=== PATIENT | female | born 1965 | race Caucasian/White ===

== ENCOUNTER 2021-08-21 11:58 | Emergency (ER) | payer BC ==
[2021-08-21 12:06] VITALS: TEMP 98
[2021-08-21] MEDS ORDERED: HYDROmorphone 1 MG/ML 1 ML SYRINGE IM STA (12:36)
--- NOTE | 2021-08-21 12:36 | XR ---
Left wrist HISTORY: Trauma and pain There is a comminuted, displaced, dorsally angulated intra-articular distal left radial fracture. Wid ening of the radioulnar joint is also present. impression: Left wrist fracture.
--- NOTE | 2021-08-21 12:59 | ED ---
Upper Extremity HPI - General Chief Complaint: Extremity Injury, Upper Stated Complaint: Broken wrist Time Seen by Provider: 08/21/21 12:26 Source: patient Mode of arrival: ambulatory Limitations: no limitations - History of Present Illness Initial Comments: 55-year-old female who fell backwards while trying to pull a branch of a yard late on her outstretched left hand. She complains of pain to the distal radius area. No other injuries no head neck or back pain she states she has no sensory or motor deficits this pain to the distal wrist. She did not take any medications at home. She rates her pain at 7/10 in severity. No other injuries reported other complaints or modifying factors at this time. She is right-hand dominant MD Complaint: Injury to:: left, wrist - Related Data Previous Rx's Medication Instructions Recorded HYDROcodone/APAP 7.5-325MG [[place] 1 tab PO Q4H PRN 3 Days #18 tab 08/21/21 7.5-325] Allergies Allergy/AdvReac Type Severity Reaction Status Date / Time No Known Allergies Allergy Verified 08/21/21 12:06 Review of Systems ROS Statement: Those systems with pertinent positive or pertinent negative responses have been documented in the HPI. ROS Other: All systems not noted in ROS Statement are negative. Past Medical History Past Medical History: No Reported History History of Any Multi-Drug Resistant Organisms: None Reported Past Surgical History: No Surgical Hx Reported Past Psychological History: No Psychological Hx Reported Smoking Status: Never smoker Past Alcohol Use History: None Reported Past Drug Use History: None Reported General Exam - General Exam Comments Initial Comments: This is a well-developed well-nourished awake alert oriented 3 female [place] Coma Scale 15 Limitations: no limitations General appearance: alert, anxious Head exam: Present: atraumatic, normocephalic, normal inspection Eye exam: Present: normal appearance, PERRL, EOMI. Absent: scleral icterus, conjunctival injection, periorbital swelling ENT exam: Present: normal exam, mucous membranes moist Neck exam: Present: normal inspection, full ROM. Absent: tenderness, meningismus, lymphadenopathy Extremities exam: Present: tenderness, normal capillary refill, other ( Patient did have a very superficial abrasion seen does not appear to be consistent with a (fracture). Absent: full ROM Back exam: Present: normal inspection, full ROM Neurological exam: Present: alert, oriented X3, CN II-XII intact Psychiatric exam: Present: normal affect, normal mood Skin exam: Present: warm, dry, intact, normal color. Absent: rash Course Vital Signs 08/21/21 08/21/21 08/21/21 12:03 14:10 14:40 Temperature 98 F Pulse Rate 100 93 91 Respiratory 20 18 18 Rate Blood Pressure 146/81 150/90 146/89 O2 Sat by Pulse 99 98 99 Oximetry 08/21/21 08/21/21 08/21/21 15:44 15:45 15:50 Temperature Pulse Rate 93 84 84 Respiratory 18 16 16 Rate Blood Pressure 153/90 141/90 152/83 O2 Sat by Pulse 100 98 97 Oximetry 08/21/21 08/21/21 08/21/21 16:05 16:20 16:35 Temperature Pulse Rate 82 85 86 Respiratory 16 16 16 Rate Blood Pressure 147/95 145/90 144/86 O2 Sat by Pulse 100 99 100 Oximetry 08/21/21 08/21/21 16:50 17:20 Temperature Pulse Rate 83 90 Respiratory 18 18 Rate Blood Pressure 153/88 147/90 O2 Sat by Pulse 100 98 Oximetry Procedures - Orthopedic Fracture Reduction Fracture #1 Consent Obtained: verbal consent Side: left Fracture Reduction Location: radius Analgesia: procedural sedation Technique: direct manipulation, traction splint (Finger traps with weights) Post Reduction X-rays Demonstrate: acceptable reduction Post-Reduction Neuro Exam: intact Post-Reduction Vascular Exam: intact Splint Applied: Yes (5 x 30 long arm volar splint) Patient Tolerated Procedure: well Additional Comments: Postreduction CAT scan at the request of orthopedics. - Procedural Sedation Procedural Sedation Start Time: 15:43 Procedural Sedation Stop Time: 15:52 Indications: fracture/dislocation reduction ASA Class: I Mallampati Airway Score: 2 Preparation: fiberglass auto body repairer applied, pulse oximeter, capnometry used, supplemental O2 applied, reversal agents at bedside, suction/airway equipment at bedside, IV secured Fentanyl: IV Fentanyl Dose: 10 IV Propofol Dose (mgs): 100 Complications: none Patient Tolerated Procedure: well Medical Decision Making - Medical Decision Making I did discuss findings with the patient. She works at [employer] and will seak an orthopedist there. She'll be discharged with medication for pain control instructions are ice elevation and prescription for medication. - Radiology Data Radiology results: report reviewed (Imaging reviewed as well as reports post reductions scan shows much improved alignment.), image reviewed Disposition Clinical Impression: Fracture of radius, distal, left, closed, Fall Disposition: HOME SELF-CARE Condition: Good Instructions (If sedation given, give patient instructions): Wrist Injury (ED), Wrist Fracture in Adults (ED) Additional Instructions: Follow-up with your orthopedist at [facility] in 1-2 days Prescriptions: HYDROcodone/APAP 7.5-325MG [[place] 7.5-325] 1 tab PO Q4H PRN 3 Days #18 tab PRN Reason: Pain Is patient prescribed a controlled substance at d/c from ED?: Yes When asked, does pt state using other controlled substances?: No If prescribed controlled substance>3 days was MAPS reviewed?: Prescribed <3 Days If opioid is for acute pain is fill amount 7 days or less?: Yes If Rx opioid, was Start Talking consent form obtained?: Yes Referrals: Nonstaff,Physician [Primary Care Provider] - 1-2 days
[2021-08-21] MEDS ORDERED: HYDROmorphone 1 MG/ML 1 ML SYRINGE IVP STA ×2 (13:22→17:37)
[2021-08-21] MEDS ORDERED: LORazepam 2 MG/ML INJ IV STA (13:32)
[2021-08-21] MEDS ORDERED: fentaNYL (PF) 50 MCG/ML 2 ML AMP IVP STA (14:03)
[2021-08-21] MEDS ORDERED: PROPOFOL 10 MG/ML 20 ML VIAL IV ONE (15:14)
[2021-08-21 17:23] VITALS: RESP 18
--- NOTE | 2021-08-21 17:36 | CT ---
EXAMINATION TYPE: CT wrist LT wo con DATE OF EXAM: 08/21/2021 COMPARISON: None HISTORY: fell and braced fall, fx, post redution CT DLP: 204.3 mGycm Automated exposure control for dose reduction was used. Images obtained from the mid radius to the PIP joints of the fingers without contrast. There is an acute transverse slightly impacted fracture of the distal radial metaphysis. Fracture dahlia e is 13 mm from the wrist joint. There is comminution of the fragments. Fracture line extends to the radiocarpal joint. The distal ulna is intact. The carpal bones are intact. Metacarpals appear intact. Fragments appear in fairly good anatomic position. IMPRESSION: Acute comminuted intra-articular fracture of the distal radius as above. No dislocation. No significa nt displacement.
[2021-08-21] MEDS ORDERED: ACET/COD 300 MG/30 MG STARTER PACK 6 TAB BTL PO STA (17:38)
[2021-08-21 18:56] VITALS: BP 143/83; PULSE 97
== END 2021-08-21 18:20 | disposition home or self-care (01) ==
LOC: EC 11:58
DX: S52.572A Other intraarticular fracture of lower end of left radius, initial encounter for closed fracture (principal); W19.XXXA Unspecified fall, initial encounter; Y92.096 Garden or yard of other non-institutional residence as the place of occurrence of the external cause
CPT/HCPCS: 73110; 73200; 99284; 25605; 99152; 96374; 96375; 96376; J2060; J3010; J1170; J2704